=== PATIENT | male | born 1960 | race Caucasian/White ===

== ENCOUNTER 2018-05-06 17:47 | Observation (INO) ==
[2018-05-06] MEDS ORDERED: ASPIRIN 325 MG TABLET PO STA (18:23)
[2018-05-06] MEDS ORDERED: KETOROLAC 30 MG/1 ML VIAL IV STA (18:23)
[2018-05-06] MEDS ORDERED: MORPHINE 4 MG/1 ML VIAL IV STA (18:23)
[2018-05-06] MEDS ORDERED: NITROGLYCERIN SL 0.4 MG TABLET SL PRN (18:23)
[2018-05-06] MEDS ORDERED: ONDANSETRON 4 MG/2 ML VIAL IV STA (18:23)
[2018-05-06] MEDS ORDERED: PANTOPRAZOLE 40 MG VIAL IV STA (18:24)
[2018-05-06 19:33] LABS: Basophils % 0.6 % (0.0-0.8); Eosinophils % 0.6 % (0.00-10.9); Hemoglobin 15.5 GM/DL (14.0-18.0); Immature Granulocytes % 0.3 %; Immature Granulocytes Absolute 0.02 #; Lymphocytes # 1.6 10*3/uL (1.4-4.0); Lymphocytes % 22.3 % (21.2-54.2); Mean Corpuscular HGB Conc 33.7 GM/DL (32-36); Mean Corpuscular Hemoglobin 29 PG (27-34); Mean Corpuscular Volume 86.5 FL (87-102); Mean Platelet Volume 10.9 FL (9.6-12.0); Monocytes # 0.7 10*3/uL (0.11-0.8); Monocytes % 9.9 % (1.7-12.7); Neutrophils # 4.7 10*3/uL (1.4-7.4); Neutrophils % 66.3 % (38.7-73.9); Platelet Count 161 T/CUMM (130-400); Red Blood Count 5.32 MC/CUMM (3.8-5.5); Red Cell Distribution Width 12.6 % (9.3-17.3)
[2018-05-06 20:16] LABS: Albumin 3.5 G/DL (3.4-5.0); Bilirubin,Total 0.6 MG/DL (0.2-1.0); Calcium 8.6 MG/DL (8.5-10.1); Osmolality,Calculated 280.1 MOS/KG (273-304); Total Protein 6.6 G/DL (6.4-8.3)
[2018-05-06] MEDS ORDERED: ONDANSETRON 4 MG/2 ML VIAL IV PRN (21:02)
[2018-05-06] MEDS ORDERED: MORPHINE 4 MG/1 ML VIAL IV PRN (21:02)
[2018-05-06] MEDS ORDERED: hydrALAZINE 20 MG/1 ML VIAL IV PRN (21:21)
[2018-05-06] MEDS: VALSARTAN/HCTZ 160-12.5 MG TABLET PO SCH (23:06)
[2018-05-06] MEDS: ENOXAPARIN 100 MG/ML SYRINGE SUBCUT SCH (23:07)
[2018-05-07 04:15] LABS: Basophils % 0.6 % (0.0-0.8); Eosinophils # 0.1 10*3/uL (0.0-0.87); Eosinophils % 1.6 % (0.00-10.9); Hemoglobin 14.8 GM/DL (14.0-18.0); Immature Granulocytes % 0.3 %; Immature Granulocytes Absolute 0.02 #; Lymphocytes # 2.3 10*3/uL (1.4-4.0); Lymphocytes % 37.3 % (21.2-54.2); Mean Corpuscular HGB Conc 33.6 GM/DL (32-36); Mean Corpuscular Hemoglobin 29 PG (27-34); Mean Platelet Volume 11.1 FL (9.6-12.0); Monocytes # 0.7 10*3/uL (0.11-0.8); Monocytes % 10.4 % (1.7-12.7); Neutrophils # 3.1 10*3/uL (1.4-7.4); Neutrophils % 49.8 % (38.7-73.9); Platelet Count 150 T/CUMM (130-400); Red Blood Count 5.06 MC/CUMM (3.8-5.5); Red Cell Distribution Width 12.9 % (9.3-17.3); White Blood Count 6.3 T/CUMM (4-12)
[2018-05-07 04:45] LABS: Calcium 8.6 MG/DL (8.5-10.1); Potassium 3.7 MMOL/L (3.5-5.1); Risk Ratio 4.95; VLDL CHOLESTEROL 29.4 MG/DL
[2018-05-07] MEDS: ENOXAPARIN 100 MG/ML SYRINGE SUBCUT SCH (09:03)
[2018-05-07] MEDS: PANTOPRAZOLE 40 MG TABLET PO SCH ×2 (10:27→21:54)
[2018-05-07] MEDS: ASPIRIN EC 81 MG TABLET PO SCH (10:27)
[2018-05-07] MEDS: VALSARTAN/HCTZ 160-12.5 MG TABLET PO SCH (21:54)
[2018-05-08] MEDS: PANTOPRAZOLE 40 MG TABLET PO SCH (09:55)
[2018-05-08] MEDS: ASPIRIN EC 81 MG TABLET PO SCH (09:55)
[2018-05-08] MEDS ORDERED: MAGNESIUM SULF RIDER 2 GM in PREMIX 1 EACH IV PRN (10:57)
[2018-05-08] MEDS ORDERED: POTASSIUM CHLORIDE RIDER 10 MEQ in PREMIX 1 EACH IV PRN (10:57)
[2018-05-08] MEDS ORDERED: diphenhydrAMINE CAP 25 MG CAPSULE PO ONE (10:57)
[2018-05-08] MEDS ORDERED: DIAZEPAM 5 MG TABLET PO ONE (10:57)
[2018-05-08] MEDS ORDERED: SODIUM CHLORIDE 0.9% 1,000 ML IV SCH ×2 (11:00→13:30)
[2018-05-08] MEDS ORDERED: LIDOCAINE 1% 20 ML VIAL ONE (12:08)
[2018-05-08] MEDS ORDERED: VERAPAMIL 5 MG/2 ML VIAL ONE (12:08)
[2018-05-08] MEDS ORDERED: NITROGLYCERIN DRIP 50 MG/250 ML BOTTLE IV ONE (12:08)
[2018-05-08] MEDS ORDERED: MIDAZOLAM 2 MG/2 ML VIAL ONE (12:13)
[2018-05-08] MEDS ORDERED: fentaNYL 100 MCG/2 ML VIAL ONE (12:13)
[2018-05-08] MEDS ORDERED: ENOXAPARIN 60 MG/0.6 ML SYRINGE ONE (12:36)
[2018-05-08 17:43] LABS: PT Patient Result 10.4 SECS
[2018-05-08 18:45] VITALS: BP 123/81
== END 2018-05-08 18:45 | disposition home or self-care (01) ==
LOC: N.ED 17:47 → N.EDINP 17:47 → SUATTDRO 20:56 → N.TELES 21:20
PROVIDERS: ADMIT Internal Medicine; ATTEND Internal Medicine
PROC: CLCCHCL (ICD-10-PCS; 2018-05-08 13:15)

== ENCOUNTER 2019-08-03 09:55 | Observation (INO) ==
[2019-08-03] MEDS ORDERED: ACETAMINOPHEN 325 MG TABLET PO PRN (12:45)
[2019-08-03] MEDS ORDERED: ONDANSETRON 4 MG/2 ML VIAL IV PRN (12:45)
[2019-08-03 16:19] LABS: Basophils % 0.4 % (0.0-0.8); Eosinophils # 0.1 10*3/uL (0.0-0.87); Eosinophils % 0.9 % (0.00-10.9); Hematocrit 46.3 VOL% (42.0-52.0); Hemoglobin 15.5 GM/DL (14.0-18.0); Immature Granulocytes % 0.4 %; Immature Granulocytes Absolute 0.03 #; Lymphocytes % 25.1 % (21.2-54.2); Mean Corpuscular HGB Conc 33.5 GM/DL (32-36); Mean Corpuscular Volume 86.9 FL (87-102); Mean Platelet Volume 10.8 FL (9.6-12.0); Monocytes % 9.4 % (1.7-12.7); Neutrophils % 63.8 % (38.7-73.9); Platelet Count 164 T/CUMM (130-400); Red Blood Count 5.33 MC/CUMM (3.8-5.5); Red Cell Distribution Width 12.4 % (9.3-17.3); White Blood Count 7.8 T/CUMM (4-12)
[2019-08-03] MEDS ORDERED: LISINOPRIL 20 MG TABLET PO ONE (17:16)
[2019-08-03] MEDS: PANTOPRAZOLE 40 MG TABLET PO SCH (20:54)
[2019-08-03] MEDS ORDERED: PANTOPRAZOLE 40 MG TABLET PO SCH (21:00)
[2019-08-03] MEDS ORDERED: ENOXAPARIN 40 MG/0.4 ML SYRINGE SUBCUT SCH (21:00)
[2019-08-04 06:11] LABS: Basophils % 0.4 % (0.0-0.8); Eosinophils # 0.1 10*3/uL (0.0-0.87); Eosinophils % 1.6 % (0.00-10.9); Hematocrit 47.9 VOL% (42.0-52.0); Hemoglobin 15.8 GM/DL (14.0-18.0); Immature Granulocytes % 0.6 %; Immature Granulocytes Absolute 0.04 #; Lymphocytes # 1.9 10*3/uL (1.4-4.0); Lymphocytes % 26.8 % (21.2-54.2); Monocytes % 10.1 % (1.7-12.7); Neutrophils % 60.5 % (38.7-73.9); Platelet Count 164 T/CUMM (130-400); Red Blood Count 5.57 MC/CUMM (3.8-5.5); Red Cell Distribution Width 12.4 % (9.3-17.3)
[2019-08-04 06:40] LABS: Osmolality,Calculated 285.8 MOS/KG (273-304)
[2019-08-04] MEDS ORDERED: LISINOPRIL 20 MG TABLET PO SCH (09:00)
[2019-08-04] MEDS ORDERED: PANTOPRAZOLE 40 MG TABLET PO SCH (09:00)
[2019-08-04] MEDS ORDERED: DILTIAZEM 90 MG TABLET PO SCH (09:30)
[2019-08-04] MEDS: DILTIAZEM 60 MG TABLET PO SCH ×2 (11:12→21:35)
[2019-08-04] MEDS: PANTOPRAZOLE 40 MG TABLET PO SCH (16:13)
[2019-08-04] MEDS ORDERED: NON-FORMULARY MEDICATION PO SCH (19:00)
[2019-08-04] MEDS ORDERED: DEXILANT 60 MG PO SCH (19:00)
[2019-08-05 04:54] LABS: Basophils % 0.6 % (0.0-0.8); Eosinophils # 0.2 10*3/uL (0.0-0.87); Eosinophils % 2.4 % (0.00-10.9); Hematocrit 46.7 VOL% (42.0-52.0); Hemoglobin 15.4 GM/DL (14.0-18.0); Immature Granulocytes % 0.4 %; Immature Granulocytes Absolute 0.03 #; Lymphocytes # 2.1 10*3/uL (1.4-4.0); Lymphocytes % 30.7 % (21.2-54.2); Mean Corpuscular Volume 87.1 FL (87-102); Mean Platelet Volume 11.1 FL (9.6-12.0); Monocytes % 9.7 % (1.7-12.7); Neutrophils % 56.2 % (38.7-73.9); Platelet Count 172 T/CUMM (130-400); Red Blood Count 5.36 MC/CUMM (3.8-5.5); Red Cell Distribution Width 12.6 % (9.3-17.3)
[2019-08-05 05:36] LABS: Calcium 7.9 MG/DL (8.5-10.1); Osmolality,Calculated 283.3 MOS/KG (273-304)
[2019-08-05] MEDS ORDERED: LACTATED RINGERS 1,000 ML IV SCH (06:30)
[2019-08-05] MEDS ORDERED: PROPOFOL 200 MG/20 ML VIAL IV ONE (08:05)
[2019-08-05] MEDS ORDERED: LIDOCAINE 2% 5 ML VIAL ONE (08:05)
[2019-08-05 12:18] VITALS: BP 146/59
== END 2019-08-05 14:35 | disposition home or self-care (01) ==
LOC: N.2W → SUATTDRO 11:43
PROVIDERS: ADMIT Internal Medicine; ATTEND Hospitalist